=== PATIENT | female | born 1965 | race Native Hawaiian/Other Pacific Islander ===

== ENCOUNTER 2016-10-22 15:41 | Emergency (ER) | payer OTHER ==
[~2016-10-22] VITALS: Ht 167.6 cm; Wt 68.0 kg
[~2016-10-22 15:41] MED LIST: OMEP40CA PO; ROBAXIN-750750 MG PO
[2016-10-22 17:06] LABS: PLATELET COUNT 294 K/uL (152-353)
[2016-10-22 17:16] LABS: POTASSIUM 3.2 mmol/L (3.6-5.2); SODIUM 142 mmol/L (136-145)
[2016-10-22] MEDS ORDERED: CODEINE/APAP1 TA2 OR (17:31)
== END 2016-10-22 18:04 | disposition home or self-care (01) ==
LOC: ED 15:41
PROVIDERS: Specialist
DX: K62.5 Hemorrhage of anus and rectum (principal); K64.8 Other hemorrhoids; K92.1 Melena
CPT/HCPCS: 36415; 80048; 80307; 81000; 82272; 83735; 85027; 99283; G0479

== ENCOUNTER 2021-02-23 11:27 | Outpatient (CLI) | payer OTHER ==
[~2021-02-23 11:27] MED LIST changes: +CODEINE/APAP1 TA2 OR
== END 2021-02-23 18:53 | disposition home or self-care (01) ==
LOC: RAD 11:27
PROVIDERS: ATTEND Internal Medicine
DX: Z02.71 Encounter for disability determination (principal); M41.9 Scoliosis, unspecified; M51.37 Other intervertebral disc degeneration, lumbosacral region; J44.9 Chronic obstructive pulmonary disease, unspecified

== ENCOUNTER 2021-07-03 08:57 | Outpatient (CLI) | payer OTHER ==
[2021-07-03 10:05] LABS: POTASSIUM 4.4 mmol/L (3.6-5.2)
[2021-07-03 10:30] LABS: PLATELET COUNT 236 K/uL (152-353)
== END 2021-07-03 20:32 | disposition home or self-care (01) ==
LOC: LABW 08:57
PROVIDERS: ATTEND Nurse Practitioner Family
DX: J44.9 Chronic obstructive pulmonary disease, unspecified (principal); M81.0 Age-related osteoporosis without current pathological fracture; K21.9 Gastro-esophageal reflux disease without esophagitis; E78.5 Hyperlipidemia, unspecified; I10 Essential (primary) hypertension; R82.90 Unspecified abnormal findings in urine
CPT/HCPCS: 36415; 80053; 80061; 81000; 82043; 82306; 82607; 82746; 83036; 84439; 84443; 85027; 87077; 87086; 87088; 87186

== ENCOUNTER 2021-07-04 12:42 | Emergency (ER) | payer OTHER ==
[~2021-07-04] VITALS: Ht 152.4 cm; Wt 65.8 kg
[2021-07-04 13:00] VITALS: BP 136/78; TEMP 99.1
== END 2021-07-04 15:50 | disposition home or self-care (01) ==
LOC: ED 12:42
DX: S80.02XA Contusion of left knee, initial encounter (principal); W01.198A Fall on same level from slipping, tripping and stumbling with subsequent striking against other object, initial encounter; Y92.098 Other place in other non-institutional residence as the place of occurrence of the external cause
CPT/HCPCS: 99283; J1885; J2550